=== PATIENT | female | born 1970 | race Hispanic/Latino ===

== ENCOUNTER 2022-08-30 02:51 | Emergency (ER) | payer SELFPAY ==
[~2022-08-30] VITALS: Ht 162.6 cm; Wt 55.8 kg
[~2022-08-30 02:51] MED LIST: ATENOLOL50 MG PO; CLONIDINE HCL0.1 MG PO; FOLIC ACID1 MG PO; IBUPROFEN400 MG PO; LEVAQUIN500 MG PO; PEPCID20 MG PO; PREDNISONE20 MG PO
[2022-08-30] MEDS ORDERED: ONDANSETRON HCL INJ 2MG/ML 2ML 2 MG/ML VIAL IV STA (02:55)
[2022-08-30] MEDS ORDERED: DICYCLOMINE HCL 20 MG/2 ML VIAL IM ONE ×2 (02:58→03:00)
[2022-08-30] MEDS ORDERED: ONDANSETRON HCL INJ 2MG/ML 2ML 2 MG/ML VIAL ONE (02:58)
[2022-08-30] MEDS ORDERED: SODIUM CHLORIDE 0.9% 1000ML 1,000 ML ONE (02:59)
[2022-08-30] MEDS ORDERED: SODIUM CHLORIDE 0.9% 1000ML 1,000 ML IV SCH (03:00)
[2022-08-30 03:16] LABS: BASOPHILS % 0.2 % (0.0-1.0); EOSINOPHILS # (AUTO) 0.1 (0.0-0.4); EOSINOPHILS % 1.3 % (0.0-6.0); HEMATOCRIT 45.7 % (34.2-44.1); HEMOGLOBIN 15.9 g/dL (12.0-16.0); LYMPHOCYTES # (AUTO) 1.1 (1.0-3.2); MEAN CORPUSCULAR HGB CONC 34.8 g/dL (31-35); MEAN CORPUSCULAR VOLUME 83.4 fL (81-99); MONOCYTES # (AUTO) 0.6 (0.2-0.8); NEUTROPHILS # (AUTO) 9.2 (2.1-6.9); NEUTROPHILS % 83.2 % (38.7-80.0); PLATELET COUNT 214 x10e3/uL (140-360); RED BLOOD COUNT 5.48 x10e6/uL (3.6-5.1); RED CELL DISTRIBUTION WIDTH 11.4 % (11.7-14.4)
[2022-08-30 03:30] LABS: ALANINE AMINOTRANSFERASE 26 IU/L (0-55); ALBUMIN 4.4 g/dL (3.5-5.0); ALKALINE PHOSPHATASE 94 IU/L (40-150); ANION GAP 16.3 mmol/L (8-16); BLOOD UREA NITROGEN 14 mg/dL (7-26); BUN/CREATININE RATIO 20 (6-25); CARBON DIOXIDE 21 mmol/L (22-29); CHLORIDE 102 mmol/L (98-107); CREATINE KINASE 74 IU/L (29-168); GLUCOSE 154 mg/dL (74-118); POTASSIUM 3.3 mmol/L (3.5-5.1); SODIUM 136 mmol/L (136-145)
[2022-08-30 03:32] LABS: LIPASE 14 U/L (8-78)
[2022-08-30] MEDS ORDERED: IOPAMIDOL 370 MG/ML 100 ML INFUS..BTL INJ ONE (03:33)
[2022-08-30] MEDS ORDERED: ONDANSETRON ODT4 MG PO (04:54)
[2022-08-30] MEDS ORDERED: DICYCLOMINE HCL20 MG PO (04:54)
[2022-08-30 05:03] VITALS: BP 123/70; PULSE 85; RESP 17; TEMP 98.6; O2SAT 100
== END 2022-08-30 05:15 | disposition home or self-care (01) ==
LOC: ER 02:55
DX: R11.2 Nausea with vomiting, unspecified (principal); A08.4 Viral intestinal infection, unspecified; R10.10 Upper abdominal pain, unspecified; I10 Essential (primary) hypertension
CPT/HCPCS: 36415; 74177; 80053; 82550; 82553; 83690; 84484; 84702; 85025; 99284; C9113; J0500; J2405; J7030; Q9967